=== PATIENT | female | born 1985 | race Caucasian/White ===

== ENCOUNTER 2022-08-10 18:44 | Emergency (ER) | payer BC, SELFPAY ==
[2022-08-10 18:53] VITALS: BP 108/74; PULSE 75; RESP 18; TEMP 36.4; O2SAT 100; BMI 22.1
--- NOTE | 2022-08-10 19:11 | CRLHL7_ITS ---
For Patients: As a result of the Century Cures Act, medical imaging exams and procedure reports are released immediately into your electronic medical record. You may view this report before your referring provider. If you have questions, please contact your health care provider. INDICATION: Severe abdominal pain since 11:30 a.m., Vomiting, chills. TECHNIQUE: CT abdomen and pelvis acquired with 62 cc Isovue 370 IV contrast. COMPARISON: None. FINDINGS: Lower chest: Unremarkable. Liver: Unremarkable. Normal in size and attenuation. No suspicious masses. Gallbladder and bile ducts: Unremarkable. No stones or inflammation. No biliary dilatation. Pancreas: Unremarkable. No mass or inflammation. Spleen: Unremarkable. Normal in size. No masses. Adrenal glands: Unremarkable. No nodules. Kidneys: 5 millimeter nonobstructing stone in the right kidney.. No suspicious masses, stones, or hydronephrosis. GI tract: Unremarkable. Normal in caliber. No sign of mass or inflammation. Normal appendix. Vasculature: Abdominal aorta is normal in caliber. Mesenteric arteries are patent. Lymph nodes: No lymphadenopathy. Peritoneum/Abdominal Wall: Unremarkable. No sign of mass or infiltration. No free air or significant free fluid. Pelvis: Left-sided corpus luteal cyst with mild enhancement. Subtle fluid in the pelvis, likely physiologic. Bladder is collapsed. Bones: Unremarkable for age. IMPRESSION: No acute intra-abdominal process identified. Nonobstructing 5 millimeter stone in the right kidney. Please note that all CT scans at this facility use dose modulation, iterative reconstruction, and/or weight-based dosing when appropriate to reduce radiation dose to as low as reasonably achievable. Dictated by Humberto Jay MD @ 08/10/2022 8:46:09 PM (Electronically Signed)
--- NOTE | 2022-08-10 19:16 | ED.ABDPAIN ---
HPI - Abdominal Pain General Chief Complaint: Abdominal Pain Stated Complaint: Abdominal Pain Time Seen by Provider: 08/10/22 19:03 History of Present Illness HPI narrative: This 37-year-old female comes in reporting abdominal pain that began this morning. She states that it is a constant pain that keeps getting worse. She has had nausea and vomiting. She does not report any fevers or dysuria symptoms. She has normal bowel movements. She did take a few Mohawk fries at noon, about 7 hours ago. This did not sit well with her. Related Data Home Medications Medication Instructions Recorded Confirmed multivitamin (Daily Multi-Vitamin 1 tab PO DAILY 08/10/22 08/10/22 tablet) Previous Rx's Medication Instructions Recorded ketorolac 10 mg tablet 10 mg PO Q8H 5 days #15 tabs 08/10/22 ondansetron HCl 4 mg tablet 4 mg PO Q6H #20 tabs 08/10/22 tramadol 50 mg tablet 50 mg PO Q6H PRN pain #15 tabs 08/10/22 Allergies Allergy/AdvReac Type Severity Reaction Status Date / Time No Known Drug Allergies Allergy Verified 08/10/22 20:23 Review of Systems Status of ROS Reports: 10 or more systems reviewed and unremarkable except as noted in History and below Narrative Constitutional: No fevers, no weight gain or loss. Eyes: No discharge. No vision changes. HENT: No congestion, no sore throat, no ear pain. Cardiovascular: No chest pain, no palpitations. Respiratory: No shortness of breath, no wheezes, no cough. Gastrointestinal: Abdominal pain with nausea and vomiting. No diarrhea. Genitourinary: No dysuria, no hematuria. Musculoskeletal: Normal range of motion. Skin: No rashes, no pruritis. Neurological: No dizziness, weakness, sensory change, speech change. Endo/Heme/Allergies: No bruising or bleeding. No polydipsia. Pysch: no suicidality, no anxiety, no insomnia. All other systems reviewed and are negative. PFSH PFSH Social History Smoking Status: Never smoker How often do you have a drink containing alcohol: never AUDIT-C Alcohol total score: 0 Non-prescribed substance use: denies use Exam Narrative: Exam Narrative: Constitutional: Well-developed, well-nourished, no acute distress. HEENT: Normocephalic, atraumatic. Neck: Normal range of motion. Nontender. Supple. Heart: Regular. No murmurs. Normal rate. Intact distal pulses. Lungs: Clear to auscultation. No chest discomfort. No wheezes, rhonchi, or rales. Abdomen: Decreased bowel sounds. Diffuse tenderness throughout the abdomen.. No rebound tenderness. Genitalia: Deferred. Back: No midline tenderness. Normal range of motion. Extremities: Normal range of motion. No injury. Skin: Intact. No rash. Warm. No erythema or pallor. Neurologic: No altered sensation. No weakness. Alert and oriented. Psychiatric: No suicidality. No anxiety or depression. No insomnia. Nursing notes and vitals signs are reviewed. Const: Vital Signs, click to edit/add: Vital Signs - 24 hr 08/10/22 18:53 Temperature 97.5 F L Pulse Rate [Pulse Oximeter] 75 Respiratory Rate 18 Blood Pressure [Ri ght Upper Arm] 108/74 Pulse Oximetry 100 Oxygen Delivery Me thod Room Air Course Vital Signs Vital signs: Initial Vital Signs Temperature 97.5 F L 08/10/22 18:53 Temperature Source Temporal Artery Scan 08/10/22 18:53 Pulse Rate 75 08/10/22 18:53 Respiratory Rate 18 08/10/22 18:53 Blood Pressure 108/74 08/10/22 18:53 Blood Pressure Mean 85 08/10/22 18:53 Blood Pressure Position Supine 08/10/22 18:53 Pulse Oximetry 100 08/10/22 18:53 Oxygen Delivery Method 08/10/22 18:53 Vital Signs Temperature 97.5 F L 08/10/22 18:53 Pulse Rate 75 08/10/22 18:53 Respiratory Rate 18 08/10/22 18:53 Blood Pressure 108/74 08/10/22 18:53 Pulse Oximetry 100 08/10/22 18:53 Oxygen Delivery Method 08/10/22 18:53 Temperature 97.5 F L 08/10/22 18:53 Pulse Rate 75 08/10/22 18:53 Respiratory Rate 18 08/10/22 18:53 Blood Pressure 108/74 08/10/22 18:53 Pulse Oximetry 100 08/10/22 18:53 Oxygen Delivery Method 08/10/22 18:53 MDM - Abdominal Pain MDM Narrative Medical decision making narrative: This patient comes in with rather severe abdominal pain with vomiting that began today. An IV was established where she received Dilaudid and Zofran. This brought great relief to her symptoms. CT imaging of the abdomen and pelvis does show a nonobstructive stone in the right kidney and a corpus luteum in left adnexa. There are no findings that concretely explain the patient's pain. Lab results returned with reassuring findings also. It is noted that she has a white cell count of around 16,000. She does not have a fever. The patient feels okay to return home. I did discuss differential diagnoses of causes for the patient's symptoms including kidney stone and ovarian cyst. The patient received prescriptions for Toradol, tramadol, and Zofran. She is instructed to return recurrent or worsening symptoms happen. Lab Data Labs: Lab Results 08/10/22 08/10/22 08/10/22 Range/Units 19:26 19:26 19:26 WBC 15.99 H (4.50-11.00) K/uL RBC 4.24 (4.00-5.20) m/uL Hgb 13.0 (12.0-16.0) gm/dL Hct 39.4 (33.0-51.0) % MCV 93 (80-100) fL MCH 31 (26-34) pg MCHC 33 (32-36) gm/dL RDW Coeff of Harshal 11.8 (11.5-15.5) % Plt Count 194 (140-440) K/uL Neut % (Auto) 86.9 H (42.0-72.0) % Lymph % (Auto) 6.2 L (20-44) % [place] % (Auto) 5.9 (0.0-11.0) % Eos % (Auto) 0.6 (0.0-7.0) % Baso % (Auto) 0.3 (0.0-3.0) % Neut # (Auto) 13.90 H (1.7-7.0) K/uL Lymph # (Auto) 1.00 (0.90-2.90) K/uL [place] # (Auto) 0.90 (0.00-0.90) K/UL Eos # (Auto) 0.10 (0.00-0.50) K/uL Baso # (Auto) 0.00 (0.00-0.30) K/uL Abs Immat Gran (auto) 0.01 (0.00-0.30) K/uL Sodium 137 (135-149) mmol/L Potassium 4.1 (3.6-5.1) mmol/L Chloride 103 (96-114) mmol/L Carbon Dioxide 23 (20-32) mmol/L BUN 14 (5-24) mg/dL Creatinine 0.5 (0.5-1.5) mg/dL Estimated Creat Clear 127.43 Estimated GFR 124 ml/min Glucose 102 (60-115) mg/dL Calcium 8.8 (8.4-10.6) mg/dL Total Bilirubin 1.1 (0.1-1.5) mg/dL Direct Bilirubin 0.4 (0.0-0.5) mg/dL AST 35 (12-35) U/L ALT 19 (4-35) U/L Alkaline Phosphatase 42 (40-150) U/L Total Protein 7.7 (6.0-8.3) g/dL Albumin 5.0 (3.3-5.0) g/dL Lipase 77 (23-300) U/L HCG, Qual (Negative) Urine Color Yellow (Yellow) Urine Appearance Clear (Clear) Urine pH 7.0 (5.0-8.5) Ur Specific [place] 1.025 (1.000-1.030) Urine Protein Negative (Negative) Urine Glucose (UA) Negative (Negative) Urine Ketones 4+ A (Negative) Urine Blood Negative (Negative) Urine Nitrite Negative (Negative) Urine Bilirubin Negative (Negative) Urine Urobilinogen 0.2 (0.2-1.0) Ur Leukocyte Esterase Negative (Negative) Urine RBC 0-2 (0-2) Urine WBC 0-2 (0-5) Ur Squamous Epith Cells Few (None-Few) Urine Bacteria None (None) Urine Mucus Few A (None) 08/10/22 Range/Units 19:50 WBC (4.50-11.00) K/uL RBC (4.00-5.20) m/uL Hgb (12.0-16.0) gm/dL Hct (33.0-51.0) % MCV (80-100) fL MCH (26-34) pg MCHC (32-36) gm/dL RDW Coeff of Harshal (11.5-15.5) % Plt Count (140-440) K/uL Neut % (Auto) (42.0-72.0) % Lymph % (Auto) (20-44) % [place] % (Auto) (0.0-11.0) % Eos % (Auto) (0.0-7.0) % Baso % (Auto) (0.0-3.0) % Neut # (Auto) (1.7-7.0) K/uL Lymph # (Auto) (0.90-2.90) K/uL [place] # (Auto) (0.00-0.90) K/UL Eos # (Auto) (0.00-0.50) K/uL Baso # (Auto) (0.00-0.30) K/uL Abs Immat Gran (auto) (0.00-0.30) K/uL Sodium (135-149) mmol/L Potassium (3.6-5.1) mmol/L Chloride (96-114) mmol/L Carbon Dioxide (20-32) mmol/L BUN (5-24) mg/dL Creatinine (0.5-1.5) mg/dL Estimated Creat Clear Estimated GFR ml/min Glucose (60-115) mg/dL Calcium (8.4-10.6) mg/dL Total Bilirubin (0.1-1.5) mg/dL Direct Bilirubin (0.0-0.5) mg/dL AST (12-35) U/L ALT (4-35) U/L Alkaline Phosphatase (40-150) U/L Total Protein (6.0-8.3) g/dL Albumin (3.3-5.0) g/dL Lipase (23-300) U/L HCG, Qual Negative (Negative) Urine Color (Yellow) Urine Appearance (Clear) Urine pH (5.0-8.5) Ur Specific [place] (1.000-1.030) Urine Protein (Negative) Urine Glucose (UA) (Negative) Urine Ketones (Negative) Urine Blood (Negative) Urine Nitrite (Negative) Urine Bilirubin (Negative) Urine Urobilinogen (0.2-1.0) Ur Leukocyte Esterase (Negative) Urine RBC (0-2) Urine WBC (0-5) Ur Squamous Epith Cells (None-Few) Urine Bacteria (None) Urine Mucus (None) Imaging Data CT scan - abdomen: Radiologist's impression: No acute intra-abdominal process identified. Nonobstructing 5 millimeter stone in the right kidney. Discharge Plan Discharge Clinical Impression: Abdominal pain Patient Disposition: Home, Self-Care Condition: Improved Additional Instructions: Take medication as needed and directed. Follow up with MD or return if worsening. Prescriptions: New ondansetron HCl 4 mg tablet 4 mg PO Q6H Qty: 20 0RF tramadol 50 mg tablet 50 mg PO Q6H PRN (Reason: pain) Qty: 15 0RF ketorolac 10 mg tablet 10 mg PO Q8H 5 Days Qty: 15 0RF No Action multivitamin [Daily Multi-Vitamin] Tablet 1 tab PO DAILY Follow Up/Referrals: Alba Mckeon MD [Primary Care Provider] - Stand Alone Forms: [facility] Info Instructions
[2022-08-10] MEDS: HYDROmorphone 0.5 mg/0.5 ml inj IVP (19:28)
[2022-08-10] MEDS: ONDANSETRON 2 MG/ML inj 4 MG IVP (19:28)
[2022-08-10 19:41] LABS: Basophils Percent Auto 0.3 % (0.0-3.0); Eosinophils Percent Auto 0.6 % (0.0-7.0); Hematocrit 39.4 % (33.0-51.0); Immature Granulocytes Abs Auto 0.01 K/uL (0.00-0.30); Lymphocytes Percent Auto 6.2 % (20-44); Mean Corpuscular HGB Conc 33 gm/dL (32-36); Mean Corpuscular Hemoglobin 31 pg (26-34); Mean Corpuscular Volume 93 fL (80-100); Monocytes Percent Auto 5.9 % (0.0-11.0); Neutrophils Percent Auto 86.9 % (42.0-72.0); Platelet Count* 194 K/uL (140-440); RDW Coefficient of Variation % 11.8 % (11.5-15.5); Red Blood Count 4.24 m/uL (4.00-5.20); White Blood Count* 15.99 K/uL (4.50-11.00)
[2022-08-10 19:43] LABS: Appearance Urine Clear (Clear); Bilirubin Urine Negative (Negative); Blood Urine Negative (Negative); Color Urine Yellow (Yellow); Glucose Urine Negative (Negative); Ketones Urine 4+ (Negative); Leukocyte Esterase Urine Negative (Negative); Nitrite Urine Negative (Negative); Protein Urine Negative (Negative); Specific Gravity Urine 1.025 (1.000-1.030); Urobilinogen Urine 0.2 (0.2-1.0)
[2022-08-10 19:45] LABS: Slide Review Reflex No
[2022-08-10 19:52] LABS: HCG Qualitative* Negative (Negative)
[2022-08-10 19:53] LABS: Mucus Urine Few; RBC Urine 0-2 (0-2); Squamous Epithelial Cell Urine Few (None-Few); WBC Urine 0-2 (0-5)
[2022-08-10 19:55] LABS: Chloride* 103 mmol/L (96-114); Sodium* 137 mmol/L (135-149)
[2022-08-10 19:56] LABS: Potassium* 4.1 mmol/L (3.6-5.1)
[2022-08-10 19:58] LABS: Alkaline Phosphatase* 42 U/L (40-150); Aspartate Amino Transferase* 35 U/L (12-35); Bilirubin Direct* 0.4 mg/dL (0.0-0.5); Bilirubin Total* 1.1 mg/dL (0.1-1.5); Blood Urea Nitrogen* 14 mg/dL (5-24); Carbon Dioxide* 23 mmol/L (20-32); Creatinine* 0.5 mg/dL (0.5-1.5); Est. Creatinine Clearance* 127.43; Estimated Glomerular Filt Rate 124 ml/min; Glucose* 102 mg/dL (60-115); Total Protein* 7.7 g/dL (6.0-8.3)
[2022-08-10 19:59] LABS: Alanine Aminotransferase* 19 U/L (4-35); Calcium* 8.8 mg/dL (8.4-10.6); Lipase* 77 U/L (23-300)
--- OUTSIDE RECORDS SUMMARY | 2022-08-17 21:33 | XMS_ITS | Encounter Summary ---
:1985 Author Organization [place] Address [address] [place] [address] Care Team Providers Name Role Phone Alba Mckeon Primary Care Provider Reason for Referral - Closed Specialty Diagnoses / Procedures Referred By Contact Refer red To Contact Diagnoses related condition, antepartum [place] [address] Referral ID Status Reason Start Date Expiration Date Visits Requ ested Visits Authorized [id number] Closed 01/09/2018 01/09/2019 1 1 HMAN Encounter Details Date Type Department Care Team Description 01/09/2018 Orders Only [facility] Simi Mckeon related Maternal [address] condition, antepartum [facility] [place], [place] [phone] (Primary Dx) [place] [address] [facility] [address] [place] [address] Social History Tobacco Use Types Packs/Day Years Used Date Never Assessed Sex Assigned at Date Recorded Not on file documented as of this encounter Plan of Treatment Scheduled Referrals Name Type Priority Associated Diagnoses Order S chedule M Genetic Counseling Referral Routine related 1 Occurrences starting condition, antepartum 2017 until 01/10/2019 documented as of this encounter Visit Diagnoses Diagnosis related condition, antepartum - Primary documented in this encounter Care Teams Dishtank Operator Relationship Specialty Start Date End Date Alba Mckeon PCP - General Family Practice 01/09/18 documented as of this encounter
--- OUTSIDE RECORDS SUMMARY | 2022-08-17 21:33 | XMS_ITS | Encounter Summary ---
:1985 Author Organization [place] Address [address] [place] [address] Care Team Providers Name Role Phone Alba Mckeon Primary Care Provider Reason for Visit Reason Comments Ultrasound prev abn quad Encounter Details Date Type Department Care Team Description 01/30/2018 Office Visit [facility] Marbella Suarez DO [address] [place] [address] abnormality Maternal Julien Garrett MD [address] [place] [address] affecting management Medicine Center of mother, s ju or [place] unspecified fetus [address] (Primary Dx) [address] [place] [address] Social History Tobacco Use Types Packs/Day Years Used Date Never Assessed Sex Assigned at Date Recorded Not on file documented as of this encounter Progress Notes Julien Garrett MD - 01/30/2018 12:15 PM CDT Please see full imaging report from ViewPoint program under imaging tab. Julien Garrett MD Maternal Medicine documented in this encounter Plan of Treatment Not on filedocumented as of this encounter Visit Diagnoses Diagnosis abnormality affecting management o f mother, single or unspecified fetus - Primary documented in this encounter Care Teams Utility Gelatin Maker Relationship Specialty Start Date End Date Alba Mckeon PCP - General Family Practice 01/09/18 documented as of this encounter
--- OUTSIDE RECORDS SUMMARY | 2022-08-17 21:33 | XMS_ITS | Encounter Summary ---
:1985 Author Organization [place] Address [address] [place] [address] Care Team Providers Name Role Phone aAliyah Fontanez Ivette Primary Care Provider Reason for Referral Diagnostic Imaging Ultrasound - Closed Specialty Diagnoses / Procedures Referred By Contact Refer red To Contact Diagnoses Abnormal quad screen Rh Maternal Med Procedures [facility] US Comprehensive Single [address] [place] [address] Referral ID Status Reason Start Date Expiration Date Visits Requ ested Visits Authorized [id number] Closed 01/30/2018 01/30/2019 1 1 Reason for Visit Diagnostic Imaging Ultrasound - Closed Specialty Diagnoses / Procedures Referred By Contact Refer red To Contact Diagnoses Abnormal quad screen Rh Maternal Med Procedures [facility] US Comprehensive Single [address] [place] [address] Referral ID Status Reason Start Date Expiration Date Visits Requ ested Visits Authorized [id number] Closed 01/30/2018 01/30/2019 1 1 Encounter Details Date Type Department Care Team Description 01/30/2018 Hospital Encounter [facility] Lina Srinivasan DO [address] [place], [place] [id number] Abnormal quad screen Maternal Julien Garrett MD [address] [place] [address] [facility] Cherrie [address] [facility] [address] [place] [address] Social History Tobacco Use Types Packs/Day Years Used Date Never Assessed Sex Assigned at Date Recorded Not on file documented as of this encounter Plan of Treatment Not on filedocumented as of this encounter Procedures Procedure Name Priority Date/Time Associated Comments Diagnosis [facility] US COMPREHENSIVE Routine 01/30/2018 1:22 PM Abnormal quad Results for this SINGLE CDT screen procedure are i n the results section. documented in this encounter Results [facility] Comprehensive Single (01/30/2018 1:22 PM CDT) Anatomical Region Laterality Modality Ultrasound Specimen (Source) Anatomical Collection Method Collection Time Re ceived Time Location / / Volume Laterality 01/30/2018 11:42 AM CDT Impressions 01/30/2018 4:38 PM CDT IMPRESSION 1) Gonzalez intrauterine at 1 9w4d gestational age. 2) None of the anomalies commonly detect ed by ultrasound were evident in the detailed anatomic survey as described above. 3) Growth parameters and estimated weight were consistent with established dates. 4) The amniotic fluid volume appeared no rmal. 5) Normal activity for gestational age. 6) On transabdominal imaging the cervix appears long and closed. Narrative 01/30/2018 4:38 PM CDT Comprehensive Pat. Name: BHARGAVI VEGA Da te: 01/30/2018 11:42am Pat. NO: [id number] Referring ??: OPAL FONTANEZ Site: [facility] Vocational Instructor: Merlene Naik RD MS : 1985 Age: 33 INDICATION Abnormal multiple marker: elevated MSAFP , 1.86 MoM on initial report - recalculated and is now normal. METHOD Transabdominal ultrasound examination. Gonzalez . Number of fetuses: 1. DATING ? Date ?Details ?Gest. age ?JAYLENE External assessment ?12/19/ 2017 ? GA: 6 w + 1 d ?19 w + 4 d ? 06/22/2018 U/S ? 01/30/2018 ? based upon AC, BPD, Femur, HC ? 20 w + 4 d ? 06/15/2018 Assigned dating ?Dating performed on 01/30/2018, based on the external assessment (on 10/28/2017) ? 19 w + 4 d ? 06/22/2018 GENERAL EVALUATION Cardiac activity: present. FHR 139 bpm. movements: visualized. Presentation: cephalic. Placenta: anterior, no previa . Umbilical cord: 3 vessel cord. Amniotic fluid: Amount of AF: normal adam unt. MVP 4.6 cm. MILTON 15.8 cm. Q1 3.3 cm, Q2 4.2 cm, Q3 4.6 cm, Q4 3.8 cm. BIOMETRY Main Biometry: BPD ? 46.5 ?mm ? 20w 0d ? Hadlock OFD ? 63.9 ?mm ? 20w 3d ? Nicolaides HC ?177.2 ?mm ?20w 1d ? Hadlock AC ?158.2 ?mm ?21w 0d ? Hadlock Femur ? 35.0 ?mm ?21w 0d ? Hadlock Cerebellum tr ? 20.7 ?mm ?19w 5d ? Nicolaides CM ? 5.9 ?mm ? Nuchal fold ?5.58 ?mm ? Humerus ? 30.7 ?mm ? 20w 1d ?Gwendolyn Weight Calculation: EFW ? 384 ? g ? EFW (lb,oz) ? 0 lb 14 ?oz Calculated by ?Hadlock ([id number]) Head / Face / Neck Biometry: Professional Application Designer ?5.0 ?mm ? Nasal bone ?5.7 ?mm ? Amniotic Fluid / FHR: AF MVP ?4.6 ? cm ? MILTON ? 15.8 ?cm ? FHR ?139 ? bpm ? ANATOMY The following structures appear normal: Head / Neck ? Cranium. Head size. Head shape. Lateral ventricles. Choroid plexus. Midline falx. Cavum septi pellucidi. Cerebellum. Cisterna magna. ? Thalami. ? Neck. Nuchal fold. Face ? Lips. Profile. Nose. Orbits. Heart / Thorax ?4-chamber view. RVOT. LVOT. Aortic arch. Bicaval view. Ductal arch. 3-snucei-usfwfzw view. Cardiac position. Cardiac size. Cardiac rhythm. ? Diaphragm. Abdomen ? Abdominal wall. Cord insertion. Stomach. Kidneys. Bladder. Liver. Bowel. Spine / Skelet. ? Cervical spine. Thoracic spine. Lumbar spine. Sacral spine. Extremities ?Arms. Legs. Gender: female. MATERNAL STRUCTURES Cervix ?Visualized, Appears Closed. ? Cervical length 43.4 mm. Right Ovary ?Visualized. Left Ovary ?Visualized. RECOMMENDATION Thank-you for referring your patient for a targeted ultrasound due to an initial elevation in her msAFP, which was determined to be normal when recalculated. I reviewed the patient's screening results and US resul ts via telephone today, as she needed to leave after the US was completed. . I discussed the reassuring findings on madeline gibbs's ultrasound with the patient. All her questions were answered and no additional testing or US follow up is indicated at this time. Return to primary provider for continued care. If you have questions regarding today's evaluation or if we can be of further service, please contact the [facility] Center. anomalies may be present but not detected Juilen Garrett MD Maternal Medicine. Procedure Note Julien Garrett MD - 01/30/2018Form atting of this note might be different from the original. Comprehensive Pat. Name:Denys VEGA Date :01/30/2018 11:42am Pat. NO: [id number] MD:AALIYAH FONTANEZ [facility]lene Naik RDMS :1985Age:33 INDICATION Abnormal multiple marker: elevated MSAFP , 1.86 MoM on initial report - recalculated and is now normal. METHOD Transabdominal ultrasound examination. Gonzalez . Number of fetuses: 1. DATING Date Details Gest. age JAYLENE External assessment 10/28/2017 GA: 6 w + 1 d 19 w + 4 d 06/22/2018 U/S 01/30/2018 based upon AC, BPD, Femur, HC 20 w + 4 d 06/15/2018 Assigned dating Dating performed on 01/09, based on the external assessment (on 10/28/2017) 19 w + 4 d 06/22/2018 GENERAL EVALUATION Cardiac activity: present. FHR 139 bpm. movements: visualized. Presentation: cephalic. Placenta: anterior, no previa . Umbilical cord: 3 vessel cord. Amniotic fluid: Amount of AF: normal adam unt. MVP 4.6 cm. MILTON 15.8 cm. Q1 3.3 cm, Q2 4.2 cm, Q3 4.6 cm, Q4 3.8 cm. BIOMETRY Main Biometry: BPD 46.5 mm 20w 0d Hadlock OFD 63.9 mm 20w 3d Nicolaides HC 177.2 mm 20w 1d Hadlock AC 158.2 mm 21w 0d Hadlock Femur 35.0 mm 21w 0d Hadlock Cerebellum tr 20.7 mm 19w 5d Nicolaides CM 5.9 mm Nuchal fold 5.58 mm Humerus 30.7 mm 20w 1d [facility] Weight Calculation: EFW 384 g EFW (lb,oz) 0 lb 14 oz Calculated by Herber ([id number]) Head / Face / Neck Biometry: Professional Application Designer 5.0 mm Nasal bone 5.7 mm Amniotic Fluid / FHR: AF MVP 4.6 cm MILTON 15.8 cm FHR 139 bpm ANATOMY The following structures appear normal: Head / Neck Cranium. Head size. Head sha pe. Lateral ventricles. Choroid plexus. Midline falx. Cavum septi pellucidi. Cerebellum. Cisterna magna. Thalami. Neck. Nuchal fold. Face Lips. Profile. Nose. Orbits. Heart / Thorax 4-chamber view. RVOT. LVO T. Aortic arch. Bicaval view. Ductal arch. 7-wcgdoh-sntclur view. Cardiac position. Cardiac size. Cardiac rhythm. Diaphragm. Abdomen Abdominal wall. Cord insertion. Stomach. Kidneys. Bladder. Liver. Bowel. Spine / Skelet. Cervical spine. Thoracic spine. Lumbar spine. Sacral spine. Extremities Arms. Legs. Gender: female. MATERNAL STRUCTURES Cervix Visualized, Appears Closed. Cervical length 43.4 mm. Right Ovary Visualized. Left Ovary Visualized. RECOMMENDATION Thank-you for referring your patient for a targeted ultrasound due to an initial elevation in her msAFP, which was determined to be normal when recalculated. I reviewed the patient's screening results and US resul ts via telephone today, as she needed to leave after the US was completed. . I discussed the reassuring findings on madeline gibbs's ultrasound with the patient. All her questions were answered and no additional testing or US follow up is indicated at this time. Return to primary provider for continued care. If you have questions regarding today's evaluation or if we can be of further service, please contact the [facility]. anomalies may be present but not detected Julien Garrett MD Maternal Medicine. IMPRESSION 1) Gonzalez intrauterine at 1 9w4d gestational age. 2) None of the anomalies commonly detect ed by ultrasound were evident in the detailed anatomic survey as described above. 3) Growth parameters and estimated weight were consistent with established dates. 4) The amniotic fluid volume appeared no rmal. 5) Normal activity for gestational age. 6) On transabdominal imaging the cervix appears long and closed. Marbella Suarez DO [facility] US ORDERABLES documented in this encounter Visit Diagnoses Diagnosis Abnormal quad screen Abnormal findings on screening documented in this encounter Care Teams Courier Driver Relationship Specialty Start Date End Date Aaliyah Fontanez PCP - General Family Practice 01/09/18 documented as of this encounter
--- OUTSIDE RECORDS SUMMARY | 2022-08-17 21:33 | XMS_ITS | Clinical Summary ---
:1985 Author Organization [place] Address [address] [place] [address]. [place] [address] Care Team Providers Name Role Phone Alba Mckeon Primary Care Provider Social History Tobacco Use Types Packs/Day Years Used Date Never Assessed Sex Assigned at Date Recorded Not on file Plan of Treatment Not on file Insurance Payer Benefit Plan / Subscriber ID Effective Dates Phone Addre ss Type Group [place] [id number] 2017-Alondra [id number] [address] [address] [place] t 0 [place] [address] Care Teams Eligibility Technician Relationship Specialty Start Date End Date Alba Mckeon PCP - General Family Practice 01/09/18
--- OUTSIDE RECORDS SUMMARY | 2022-08-17 21:33 | XMS_ITS | Clinical Summary ---
:1985 Author Organization [employer] [facility] [place] [address] Care Team Providers Name Role Phone Alba Mckeon MD Primary Care Provider [phone] Allergies No known active allergies Medications Medication Sig Dispensed Refills Start Date End Date Status multivitamin (MVI) Take 1 0 10/08/2021 Active tablet Tablet by mouth once daily. sertraline Take 1 90 Tablet 3 08/14/2022 Active (ZOLOFT) 50 mg Tablet (50 tabletIndications: mg) by mouth Anxiety every morning. amoxicillin TK 2 CS PO 0 09/11/2019 Discon tinued (AMOXIL) 500 mg TID UTD 2 (*Me d capsule complete/R egimen complete/L evel of care boone e) traMADoL (ULTRAM) Q6H 0 08/10/2022 D iscontinued 50 mg tablet 2 (*Med complete/R egimen complete/L evel of care boone e) ondansetron Q6H 0 08/10/2022 Discont inued (ZOFRAN) 4 mg 2 (*Med tablet complete/R egimen complete/L evel of care boone e) ketorolac 0 08/10/2022 Discontin ued (TORADOL) 10 mg 2 (*Me d tablet complete/R egimen complete/L evel of care boone e) Active Problems Problem Noted Date Anxiety state, unspecified 07/22/2012 Other acne 07/22/2012 Resolved Problems Problem Noted Date Resolved Date Encounter for supervision of other normal , first 1 12/29/2016 08/04/2018 trimester Overview: Formatting of this note is dif ferent from the original. Estimated Date of Delivery: 06/22/18 Patient's last menstrual period was 08/10. Last Tdap- 04/01/18 Last Flu vaccine- 08/18/2017 Rhogam 04/01/18 No Known Allergies Obstetric History T1 L1 SAB0 TAB0 Ectopic0 Multiple0 Live s0 # Outcome Date GA Lbr Donny/2nd Weight Sex Delivery Anes PTL Lv 2 Current 1 Term 12/23/15 F Component Latest Ref Rng & Units 05/25/2018 Culture No Group B Streptococcus isolated. Component Latest Ref Rng & Units 10/28/201710/2810/28/2017 9:54 AM 9:54 AM 9:54 AM HEMOGLOBIN 12.0 - 16.0 g/dL 12.1 MCV 80 - 100 fL 92 ANTIBODY SCREEN Negative Negative SPECIMEN EXPIRATION DATE/TIME 10/31/17 23:59 RUBELLA IGG ANTIBODY Positive 2.42 HIV-1/HIV-2 ANTIBODY Non-Reactive Non-Reactive ABORH A Rh Negative HBSAG Nonreactive Nonreactive TREPONEMA PALLIDUM Negative Negative Culture LYME SCREEN W/REFLEX WEST BLOT Negative Negative HEMOGLOBIN A1C SCREENING <6.4 % 5.2 Component Latest Ref Rng & Units 10/28/2017 11:19 AM HEMOGLOBIN 12.0 - 16.0 g/dL MCV 80 - 100 fL ANTIBODY SCREEN Negative SPECIMEN EXPIRATION DATE/TIME RUBELLA IGG ANTIBODY HIV-1/HIV-2 ANTIBODY Non-Reactive ABORH HBSAG Nonreactive TREPONEMA PALLIDUM Negative Culture No growth (<1,000 CFU/mL) LYME SCREEN W/REFLEX WEST BLOT Negative HEMOGLOBIN A1C SCREENING <6.4 % Past Medical History: Diagnosis Date ? ? Depressive disorder, not elsewhere classified ? ? Eating disorder, unspecified mid teens, restrictive/purging type ? ? Encounter for supervision of normal first in first trimester 05/02/2015 ? ? Encounter for supervision of other normal , first trimester 10/28/2017 ? ? Irritable bowel syndrome ? ? Other acne Past Surgical History: Procedure Laterality Date ? ? COLONOSCOPY SCREENING ? ? TONSILLECTOMY No data on file. 2nd Problems (from 10/28/17 to present) No problems associated with this episod eAsiya Pruitt, RNC.....12/01/2017 8:52 AM Supervision of normal 10/23/2015 08/04/20 18 Encounter for supervision of normal first in first 05/02/2015 03/02/2018 trimester Overview: Rh Negative, rhogam 10/10/2015 TDaP 10/10/2015 It's a Girl! GBS negative Encounters Date Type Specialty Care Team Description 08/14/2022 Office Visit Alba Mckeon, NÉSTOR gama up (Still having MD pain, appetite is none, very fatigued. Is keeping herself hydrate d and urinating. Very painful BM) 08/14/2022 Travel from Last 3 Months Immunizations Name Administration Dates Next Due Influenza Virus, Unspecified 08/18/2017 Influenza, IIV3 (Age 6-35 mos) 08/23/2014 Influenza, IIV3 (Age >=3 years) 08/07/2015, 08/23/2014, 06/2013 Influenza, IIV4 08/01/2021, 07/14/2018, 08/18/2017, 08/06/2016, 08/24/2015 Influenza, IIV4 (=>6mos) MDV 08/23/2020 Tdap 03/31/2018, 10/10/2015, 02/17/2009 Family History Medical History Relation Name Comments Good Health Father Good Health Mother Other Paternal Grandfather depression Relation Name Status Comments Father Mother Paternal Grandfather Social History Tobacco Use Types Packs/Day Years Used Date Never Smoker Smokeless Tobacco: Never Used Tobacco Cessation: Counseling Given: Yes Alcohol Use Standard Drinks/Week Comments No 0 (1 standard drink = 0.6 oz pure alcoho l) Sex Assigned at Date Recorded Not on file COVID-19 Exposure Response Date Recorded In the last 10 days, have you been in contact with No / Unsu re 08/14/2022 10:22 AM CDT someone who was confirmed or suspected to have Coronavirus/COVID-19? Obstetrics History Para Term AB IAB SAB Ectopic Multiple Living Live Births 2 2 2 1 1 Date Outcome GA Total Labor/2nd/3rd Weight Sex Delivery Anes PTL Macarena A 1 A5 Name Clin Labor 12/23 Term 06/25 Term 40w 4.08 kg F CS-LTranv Epidu N Estephania Sinclair Do /2017 3d (9 lb) ral ng lla Pa lme r Complications: Failure to Progress in Fi rst Stage Delivery Location: [facility] Last Filed Vital Signs Vital Sign Reading Time Taken Comments Blood Pressure 107/75 08/14/2022 10:46 AM CDT Pulse 60 08/14/2022 10:46 AM CDT Temperature 36.8 ??C (98.2 ??F) 08/14/2022 10:46 AM CDT Respiratory Rate 18 11/12/2015 10:45 AM DIRECTOR DIGITAL Oxygen Saturation 99% 08/14/2022 10:46 AM CDT Inhaled Oxygen Concentration - - Weight 57.2 kg (126 lb 3.2 oz) 08/14/2022 10:46 AM CDT Height 161.2 cm (5' 3.47) 10/08/2021 7:50 AM DIRECTOR DIGITAL Body Mass Index 22.03 10/08/2021 7:50 AM DIRECTOR DIGITAL Plan of Treatment Health Maintenance Due Date Last Done Comments Hepatitis C screening for age 0301/08/2003 18-79 COVID-19 vaccine series (2 - 06/14/2021 05/24/2021 Pfizer series) Influenza for age 9-49 07/11/2022 08/01/2021, 08/23/2020, 07/14/2018, Additional history exists BMI (ht and wt on same day) for 10/08/2022 10/08/2021, 08/10, age 18+ 09/20/2019, Additional history exists Pap test for age 21-65 08/04/2023 08/04/2018, 08/04/2018, 05/22/2015, Additional history exists Depression screening for age 12+ 08/14/2023 08/14/2022, , 08/04/2018, Additional history exists Tetanus booster 03/31/2028 03/31/2018, 10/10/2015, 02/17/2009 Tdap Completed 03/31/2018, 10/10/2015, 02/17/2009 Procedures Procedure Name Priority Date/Time Associated Diagnosis Comme nts CBC WITH AUTO Routine 08/14/2022 11:23 Abdominal pain, Results for this DIFFERENTIAL AM CDT generalized procedure are i n the results section. CBC WITH AUTO Routine 08/14/2022 11:23 Abdominal pain, Results for this DIFFERENTIAL AM CDT generalized procedure are i n the results section. from Last 3 Months Results (ABNORMAL) CBC WITH AUTO DIFFERENTIAL (08/14/2022 11:23 AM CDT) [facility] Method Time Signature WHITE BLOOD 7.5 4.5 - 08/14/2022 [facility] COUNT 11.0 11:30 AM T [facility] mm RED BLOOD COUNT 3.77 (L) 4.00 - 08/14/2022 [facility] 5.20 11:30 AM CDT [facility] CLINIC HEMOGLOBIN 11.7 (L) 12.0 - 08/14/2022 [facility] 16.0 g/dL 11:30 AM [facility] HEMATOCRIT 35.2 33.0 - 08/14/2022 [facility] 51.0 % 11:30 AM [facility] MCV 93 80 - 100 08/14/2022 [facility] fL 11:30 AM [facility] MCH 31.0 26.0 - 08/14/2022 [facility] 34.0 pg 11:30 AM [facility] MCHC 33.2 32.0 - 08/14/2022 [facility] 36.0 g/dL 11:30 AM [facility] RDW 12.2 11.5 - 08/14/2022 [facility] 15.5 % 11:30 AM [facility] PLATELET COUNT 205 140 - 440 [facility] MPV 10.7 6.5 - 08/14/2022 [facility] 11.0 fL 11:30 AM [facility] % NEUT 70.7 % 08/14/2022 [facility] 11:30 AM [facility] % LYMPH 17.8 % 08/14/2022 [facility] 11:30 AM [facility] % MONO 8.0 % 08/14/2022 [facility] 11:30 AM [facility] % EOS 3.1 % 08/14/2022 [facility] 11:30 AM [facility] % BASO 0.4 % 08/14/2022 [facility] 11:30 AM CDT [facility] ABSOLUTE 5.3 1.7 - 7.0 08/14/2022 [facility] NEUTROPHILS thou/cu 11:30 AM CDT [facility] CLINIC ABSOLUTE 1.3 0.9 - 2.9 08/14/2022 [facility] LYMPHOCYTES thou/cu 11:30 AM CDT [facility] ABSOLUTE 0.6 <0.9 08/14/2022 [facility] MONOCYTES thou/cu 11:30 AM CDT [facility] ABSOLUTE 0.2 <0.5 08/14/2022 [facility] EOSINOPHILS thou/cu 11:30 AM CDT [facility]IN[facility] ABSOLUTE 0.0 <0.3 08/14/2022 [facility] BASOPHILS thou/cu 11:30 AM CDT [facility] CLINIC Specimen Anatomical Collection Method / Collection Time Recei eleni Time (Source) Location / Volume Laterality Blood BLOOD SPECIMEN / Venipuncture / 08/14/2022 11:23 08/14 Unknown Unknown AM CDT 11:27 AM CDT Alba Mckeon MD HEMATOLOGY Performing Organization Address City/State/ZIP Code Phon e Number [facility] [address] [place] [address] from Last 3 Months Insurance Payer Benefit Plan / Subscriber ID Effective Dates Phone Addre ss Type Group [employer] [place] [place] [id number] 2020-Present [address] [place] [id number] [place] (Home) [phone] ANAND WHEELER (Work) [id number] Advance Directives Latest Code Status on File Code Status Date Activated Date Inactivated Comments Full Code 11/12/2015 10:35 AM 11/12/2015 2:51 PM Care Teams Electrical Controls Designer Relationship Specialty Start Date End Date Alba Mckeon MD PCP - General Family Practice 08/04/[address] [place] [address] (work)
--- OUTSIDE RECORDS SUMMARY | 2022-08-17 21:33 | XMS_ITS | Encounter Summary ---
:1985 Author Organization [place] Address [address] [facility] [place] [address] Care Team Providers Name Role Phone Aaliyah Fontanez Primary Care Provider Reason for Visit Diagnostic Imaging Ultrasound - Closed Specialty Diagnoses / Procedures Referred By Contact Refer red To Contact Diagnoses related condition, antepartum LindaAaliyah aguero Procedures Maternal OB Complete 2/3 Tri Sngle MFM US Comprehensive Single [address] [place] [address] Referral ID Status Reason Start Date Expiration Date Visits Requ ested Visits Authorized [id number] Closed 01/09/2018 01/09/2019 1 1 Encounter Details Date Type Department Care Team Description 01/09/2018 Hospital Encounter [facility] LindaDiomedes aguero related Maternal [address] condition, [facility] [place], [place] antepartum [place] [address] [address] [place] [address] Social History Tobacco Use Types Packs/Day Years Used Date Never Assessed Sex Assigned at Date Recorded Not on file documented as of this encounter Plan of Treatment Not on filedocumented as of this encounter Procedures Procedure Name Priority Date/Time Associated Diagnosis Comme nts MFM US OB COMPLETE Routine 01/09/2018 2:12 PM relate d Results for this 2/3 TRI SINGLE EMERGENCY VEHICLE DISPATCHER condition, procedure are in antepartum the results section. documented in this encounter Results Maternal OB Complete 2/3 Tri Sngle (01/09/2018 2:12 PM EMERGENCY VEHICLE DISPATCHER) Anatomical Region Laterality Modality Ultrasound Specimen (Source) Anatomical Collection Method Collection Time Re ceived Time Location / / Volume Laterality 01/09/2018 1:31 PM EMERGENCY VEHICLE DISPATCHER Impressions 01/12/2018 2:27 PM EMERGENCY VEHICLE DISPATCHER IMPRESSION 1) Intrauterine at 16+4 weeks gestational age. 2) None of the anomalies commonly detect ed by ultrasound were evident in the limited for gestational age anatomic survey described above. 3) Growth parameters and estimated weight were consistent with an appropriate for gestation age pattern of growth. 4) The amniotic fluid volume appeared no rmal. Narrative 01/12/2018 2:27 PM EMERGENCY VEHICLE DISPATCHER / Trim Pat. Name: KIRSTIN VEGARA Duffy Da te: 01/09/2018 1:31pm Pat. NO: [id number] Referring ??: OPAL FONTANEZ Site: [facility] Veterinary Physiologist: Elise Hodge RD MS : 1985 Age: 33 INDICATION Abnormal multiple marker: elevated MSAFP , 1.86 MoM. METHOD Transabdominal ultrasound examination. Gonzalez . Number of fetuses: 1. DATING ? Date ?Details ?Gest. age ?JAYLENE External assessment ?10/28/ 2016 ? GA: 6 w + 1 d ?16 w + 4 d ? 06/22/2018 U/S ? 01/09/2018 ?based upon AC, BPD, Femur, HC ? 17 w + 3 d ? 06/16/2018 Assigned dating ?Dating performed on 01/09/2018, based on the external assessment (on 10/28/2017) ? 16 w + 4 d ? 06/22/2018 GENERAL EVALUATION Cardiac activity: present. FHR 150 bpm. movements: visualized. Presentation: Variable. Placenta: anterior, no previa . Umbilical cord: 3 vessel cord. Amniotic fluid: MVP 4.0 cm. MILTON 14.2 cm. Q1 3.6 cm, Q2 3.2 cm, Q3 3.4 cm, Q4 4.0 cm. BIOMETRY Main Biometry: BPD ? 39.2 ?mm ? 17w 6d ? Herber DUTTA ? 47.5 ?mm ? 16w 3d ? Nicolaides HC ?138.5 ?mm ?17w 2d ? Hadlock AC ?120.9 ?mm ?17w 5d ? Hadlock Femur ? 22.9 ?mm ?16w 6d ? Hadlock Cerebellum tr ? 16.9 ?mm ?16w 6d ? Nicolaides CM ? 3.6 ?mm ? Nuchal fold ?3.07 ?mm ? Humerus ? 23.0 ?mm ? 17w 1d ?Gwendolyn Weight Calculation: EFW ? 191 ? g ? EFW (lb,oz) ? 0 lb 7 ?oz Calculated by ?Hadlock ([id number]) Head / Face / Neck Biometry: Reed Or Wind Instrument Repairer ?6.5 ?mm ? Nasal bone ?4.9 ?mm ? Amniotic Fluid / FHR: AF MVP ?4.0 ? cm ? MILTON ? 14.2 ?cm ? FHR ?150 ? bpm ? ANATOMY The following structures appear normal: Heart / Thorax ?Cardiac position. Cardiac size. Cardiac rhythm. The following structures were visualized : Head / Neck ? Cranium. Head size. Head shape. Lateral ventricles. Midline falx. Cavum septi pellucidi. Cerebellum. Cisterna magna. Thalami. ? Neck: No neck masses seen. Face ? Profile. Orbits. Heart / Thorax ?4-chamber view. RVOT. LVOT. ? Diaphragm: No apparent defect. Abdomen ? Abdominal wall. Cord insertion. Stomach: Left-sided. Right kidney. Left kidney. Bladder: Bladder appears normal in size and shape. Liver. Spine / Skelet. ? Cervical spine. Thoracic spine. Lumbar spine. Sacral spine. Extremities ?Arms. Legs. Gender: female. MATERNAL STRUCTURES Cervix ?Visualized, Appears Closed. Right Ovary ?Visualized. Left Ovary ?Visualized. RECOMMENDATION We discussed the findings on today's ult rasound with the patient. Recalculated quad screen results were lo w risk (see genetic counseling note). Comprehensive ultrasound is recommended at 18-20 weeks., Return to primary provider for continued care., Thank-you for the opportunity to partici neil in the care of this patient. If you have questions regarding today's evaluation or if we can be of further service, please contact the Maternal[facility] Medicine Center. anomalies may be present but not detected. Procedure Note Marbella Suarez DO - 01/12/2018Format ting of this note might be different from the original. Trim Pat. Name:Mary Ellen VEGAbennieesau Date :01/09/2018 1:31pm Pat. NO: [id number] MD:AALIYAH FONTANEZ [facility]Elise Hodge RDMS :1985Age:33 INDICATION Abnormal multiple marker: elevated MSAFP , 1.86 MoM. METHOD Transabdominal ultrasound examination. Gonzalez . Number of fetuses: 1. DATING Date Details Gest. age JAYLENE External assessment 10/28/2017 GA: 6 w + 1 d 16 w + 4 d 06/22/2018 U/S 01/09/2018 based upon AC, BPD, Femur, HC 17 w + 3 d 06/16/2018 Assigned dating Dating performed on 01/09, based on the external assessment (on 10/28/2017) 16 w + 4 d 06/22/2018 GENERAL EVALUATION Cardiac activity: present. FHR 150 bpm. movements: visualized. Presentation: Variable. Placenta: anterior, no previa . Umbilical cord: 3 vessel cord. Amniotic fluid: MVP 4.0 cm. MILTON 14.2 cm. Q1 3.6 cm, Q2 3.2 cm, Q3 3.4 cm, Q4 4.0 cm. BIOMETRY Main Biometry: BPD 39.2 mm 17w 6d Hadlock OFD 47.5 mm 16w 3d Nicolaides HC 138.5 mm 17w 2d Hadlock AC 120.9 mm 17w 5d Hadlock Femur 22.9 mm 16w 6d Hadlock Cerebellum tr 16.9 mm 16w 6d Nicolaides CM 3.6 mm Nuchal fold 3.07 mm Humerus 23.0 mm 17w 1d Gwendolyn Weight Calculation: EFW 191 g EFW (lb,oz) 0 lb 7 oz Calculated by [place] ([id number]) Head / Face / Neck Biometry: Reed Or Wind Instrument Repairer 6.5 mm Nasal bone 4.9 mm Amniotic Fluid / FHR: AF MVP 4.0 cm MILTON 14.2 cm FHR 150 bpm ANATOMY The following structures appear normal: Heart / Thorax Cardiac position. Cardiac size. Cardiac rhythm. The following structures were visualized : Head / Neck Cranium. Head size. Head sha pe. Lateral ventricles. Midline falx. Cavum septi pellucidi. Cerebellum. Cisterna magna. Thalami. Neck: No neck masses seen. Face Profile. Orbits. Heart / Thorax 4-chamber view. RVOT. LVO T. Diaphragm: No apparent defect. Abdomen Abdominal wall. Cord insertion. Stomach: Left-sided. Right kidney. Left kidney. Bladder: Bladder appears normal in size and shape. Liver. Spine / Skelet. Cervical spine. Thoracic spine. Lumbar spine. Sacral spine. Extremities Arms. Legs. Gender: female. MATERNAL STRUCTURES Cervix Visualized, Appears Closed. Right Ovary Visualized. Left Ovary Visualized. RECOMMENDATION We discussed the findings on today's ult rasound with the patient. Recalculated quad screen results were lo w risk (see genetic counseling note). Comprehensive ultrasound is recommended at 18-20 weeks., Return to primary provider for continued care., Thank-you for the opportunity to partici trejo in the care of this patient. If you have questions regarding today's evaluation or if we can be of further service, please contact the [facility] Center. anomalies may be present but not detected. IMPRESSION 1) Intrauterine at 16+4 weeks gestational age. 2) None of the anomalies commonly detect ed by ultrasound were evident in the limited for gestational age anatomic survey described above. 3) Growth parameters and estimated weight were consistent with an appropriate for gestation age pattern of growth. 4) The amniotic fluid volume appeared no rmal. Aaliyah Fontanez [facility] US ORDERABLES documented in this encounter Visit Diagnoses Diagnosis related condition, antepartum documented in this encounter Care Teams Mining Machinery Assembler Relationship Specialty Start Date End Date Aaliyah Fontanez PCP - General Family Practice 01/09/18 documented as of this encounter
--- OUTSIDE RECORDS SUMMARY | 2022-08-17 21:33 | XMS_ITS | Encounter Summary ---
:1985 Author Organization [place] Address [address] [place] [address] Care Team Providers Name Role Phone LindaGerard agueroeric Steele Primary Care Provider Reason for Referral Diagnostic Imaging Ultrasound - Closed Specialty Diagnoses / Procedures Referred By Contact Refer red To Contact Diagnoses Abnormal quad screen Rh Maternal Med Procedures [facility] [address] [place] [address] Referral ID Status Reason Start Date Expiration Date Visits Requ ested Visits Authorized [id number] Closed 01/30/2018 01/30/2019 1 1 R AND WALL APPLIER LIQUID Reason for Visit Reason Comments Ultrasound Abn quad Consult GC, abn quad Encounter Details Date Type Department Care Team Description 01/09/2018 Office Visit [facility] Diasy Fontanezmigel steele [address] [place], [place] [id number] Abnormal quad screen Maternal Marbella Suarez DO [address] [place], [place] [address] (Primary Dx) [facility] [address] [place] [address] Social History Tobacco Use Types Packs/Day Years Used Date Never Assessed Sex Assigned at Date Recorded Not on file documented as of this encounter Progress Notes Marbella Suarez DO - 01/09/2018 2:00 PM CST Please see Imaging tab under Chart Review for details of today's . Marbella Suarez DO Maternal- Medicine R AND WALL APPLIER LIQUID documented in this encounter Plan of Treatment Not on filedocumented as of this encounter Results [facility] US Comprehensive Single (01/30/2018 1:22 PM CDT) [...] VEGA Da te: 01/30/2018 11:42am Pat. NO: [id number] Referring ??MD: OPAL FONTANEZ Site: [facility] Paperhanger Contractor: Merlene Naik RD MS : 1985 Age: [...] 0 lb 14 ?oz Calculated by ?Hadlock ([id number]) Head / Face / Neck Biometry: Director Of Counseling ?5.0 ?mm ? Nasal bone ?5.7 ?mm [...] LVOT. Aortic arch. Bicaval view. Ductal arch. 5-[id number]-xykqywn view. Cardiac position. Cardiac size. Cardiac rhythm. [...] not detected Julien Garrett MD Maternal Medicine. Procedure Note Julien Garrett MD - 01/30/2018Form atting of this note might be different from the original. Comprehensive Pat. Name:Denys VEGA Date :01/30/2018 11:42am Pat. NO: [id number] MD:AALIYAH FONTANEZ [facility]:Merlene Naik RDMS :1985Age:33 INDICATION Abnormal multiple marker: [...] 5.58 mm Humerus 30.7 mm 20w 1d Gwendolyn Weight Calculation: EFW 384 g EFW (lb,oz) 0 lb 14 oz Calculated by Herber ([id number]) Head / Face / Neck Biometry: Director Of Counseling 5.0 mm Nasal bone 5.7 mm Amniotic [...] T. Aortic arch. Bicaval view. Ductal arch. 3-jymdcs-zpcmppt view. Cardiac position. Cardiac size. Cardiac rhythm. [...] appears long and closed. Marbella Suarez DO IMG [facility] US ORDERABLES documented in this encounter Visit Diagnoses Diagnosis Abnormal quad screen - Primary Abnormal findings on screening Abnormal quad screen Abnormal findings on screening documented in this encounter Care Teams Medical Planner Relationship Specialty Start Date End Date Aaliyah Fontanez PCP - General Family Practice 01/09/18 documented as of this encounter
--- OUTSIDE RECORDS SUMMARY | 2022-08-17 21:33 | XMS_ITS | Encounter Summary ---
:1985 Author Organization [place] Address [facility] [place] [address] Care Team Providers Name Role Phone Alba Mckeon Primary Care Provider Reason for Visit Reason Comments Consult GC, abnormal quad Ultrasound abnormal quad Encounter Details Date Type Department Care Team Description 01/09/[address] [facility] Merlene Cuenca RN Consult ( GC, abnormal Maternal Medicine quad ); Ultrasound Center [place] (abnormal quad) [address] [place] [address] Social History Tobacco Use Types Packs/Day Years Used Date Never Assessed Sex Assigned at Date Recorded Not on file documented as of this encounter Plan of Treatment Not on filedocumented as of this encounter Visit Diagnoses Not on filedocumented in this encounter Care Teams Appeals Officer Relationship Specialty Start Date End Date Alba Mckeon PCP - General Family Practice 01/09/18 documented as of this encounter
== END 2022-08-10 21:30 | disposition home or self-care (01) ==
PROVIDERS: Emergency Provider Emergency Medicine Emergency Medical Services; PCP Family Medicine
DX: R10.9 Unspecified abdominal pain (principal)
CPT/HCPCS: 36415; 74177; 80048; 80076; 81001; 83690; 84703; 85025; 96374; 96375; 99284; 99285; J1170; J2405; Q9967